=== PATIENT | female | born 1970 | race Caucasian/White ===

== ENCOUNTER 2022-10-06 11:12 | Day surgery (SDC) | payer BC ==
[2022-10-04 11:57] LABS: Absolute Lymphocytes (CBC) 1.3 K/uL (0.7-4.9); Hematocrit 39.4 % (36.0-45.0); MCV 87.7 fL (80-100); MPV 7.9 fL (7.6-11.3)
[2022-10-04 12:14] LABS: Specific Gravity 1.009 (1.005-1.030); Urine Bacteria <20 /HPF (<20); Urine Bilirubin NEGATIVE (Negative); Urine Blood 1+ (Negative); Urine Clarity Clear (Clear); Urine Color Colorless (Yellow); Urine Glucose NEGATIVE (Negative); Urine Mucus Slight /HPF (None Seen); Urine Protein NEGATIVE (Negative); Urine RBC <5 /HPF (None Seen); Urine Urobilinogen Normal (Normal); Urine pH 5.5 (5.0-7.0)
[2022-10-06] MEDS ORDERED: CEFAZOLIN SODIUM 2 GM/VIAL ONE (11:22)
[2022-10-06] MEDS ORDERED: Ringers Lactate 1,000 ML IV ONE ×2 (11:23→15:32)
[2022-10-06] MEDS: SCOPOLAMINE HYDROBROMIDE PATCH TD ONE ×3 (11:50→13:45)
[2022-10-06] MEDS ORDERED: propofoL 200 MG/20 ML VIAL IV ONE (13:18)
[2022-10-06] MEDS ORDERED: dexAMETHasone 10 MG/ML VIAL ONE (13:18)
[2022-10-06] MEDS ORDERED: LIDOCAINE 2% MPF 5 ML VIAL ONE (13:18)
[2022-10-06] MEDS ORDERED: MIDAZOLAM HCL 2 MG/2 ML INJ ONE (13:18)
[2022-10-06] MEDS ORDERED: ROCURONIUM 50 MG/5 ML VIAL IV ONE (13:18)
[2022-10-06] MEDS ORDERED: FENTANYL CITR 250 MCG/5 ML ONE (13:18)
[2022-10-06] MEDS ORDERED: ONDANSETRON 4 MG/2 ML VIAL ONE (13:23)
[2022-10-06] MEDS ORDERED: BUPIVACAINE 0.25% PF 30 ML VIAL ONE (13:34)
[2022-10-06] MEDS ORDERED: Levofloxacin500mg IV 500 MG/100 ML BAG IV ONE (13:59)
[2022-10-06] MEDS ORDERED: KETOROLAC 30 MG/ML INJ ONE (16:22)
[2022-10-06] MEDS ORDERED: MEPERIDINE HCL 25 MG/ML SYR IM PRN (16:52)
[2022-10-06] MEDS ORDERED: HYDROCODONE/APAP 5/325 MG TAB PO PRN (16:52)
[2022-10-06] MEDS ORDERED: PROMETHAZINE INJ 25 MG/ML AMP IV PRN (16:52)
[2022-10-06] MEDS ORDERED: IBUPROFEN 200 MG TAB PO PRN (16:52)
--- NOTE | 2022-10-06 16:57 | P.BOP ---
Preoperative diagnosis: AUB-O, postcoital bleeding Deep dyspareunia,Bicornuate uterus Postoperative diagnosis: same, pelvic adhesions and Endometriosis Primary procedure: TLH BS, Endometriosis excision, WENDY bladder and bowel>50%case Secondary procedure: cysto Outside Event Sales Specialist: Deborah Dodge Estimated blood loss: 100 Specimen: uterus tubes, endometriosis with specimen Findings: rt USL and post CDS adhesions from USL endo,lat broad lig,Rt ov.adhesions Anesthesia: General Complications: None Fluids & blood products: LR 1000, UO 200 Transferred to: Recovery Room Condition: Good
[2022-10-06 17:24] VITALS: O2SAT 100
[2022-10-06 18:29] VITALS: BP 113/69; TEMP 98.1
[2022-10-06] MEDS ORDERED: METOPROLOL XL 25 MG TAB PO SCH (21:00)
--- NOTE | 2022-10-06 22:36 | OP ---
Date of Procedure: 10/06/2022 Surgeon: Mady Vaca MD Primary Class Teacher: Deborah Tilley. Preoperative Diagnoses: Abnormal uterine bleeding-postcoital bleeding, deep dyspareunia, and bicornu ate uterus. Postoperative Diagnoses: Abnormal uterine bleeding-postcoital bleeding, deep dyspareunia, bicornuate uterus, pelvic adhesions, and endometriosis. Procedures Performed: Total laparoscopic hysterectomy, bilateral salpingectomy, endometriosis, excis ion of bladder and bowel adhesions which took 50% of the case at least 45 minutes and cystoscopy Anesthesia: General endotracheal. Estimated Blood Loss: 100. Urine Output: 200. Fluids: Ringer's Lactate in 1000. Complications: None. Drains: None. The patient's condition stable. Specimens: Uterus, tubes, endometriosis along with the specimen. Findings: Right uterosacral ligament had thick endometriosis coming from the right distal uterosacra l and the posterior cul-de-sac. There were significant adhesions of the right ovary to the posterior wall of the pelvis, lateral burrell, broad ligament, and uterosacral ligament. The tube was also adhe red to the ovaries on both sides. The left ovary was much freer than the right side. The course of the ureters on both sides appeared to be unremarkable. On cystoscopy, both ureteric orifices had str johnny jets of urine. There were significant varicosities inside the bladder very clearly visible throu gh the transitional epithelium. The vaginal cuff was closed with the help of 0 Vicryl sutures x5 and 2-0 PDS suture for a second laye r closure on the right half of the cuff, which is extremely thick. The bowel adhesions on the right upper quadrant and the right lateral abdominal wall were taken down. Cecal adhesions were present to this area. There were adhesions to the left lateral wall at the pe lvic brim covering the left tube and ovary at their origin. So, these also had to be taken down for me to complete the surgery. Then, there were posterior cul-de-sac adhesions that were obliterating t he cul-de-sac and these adhesions had to be taken down to restore normal anatomy before I finished th e hysterectomy. The cuff closed with the help of Vicryl sutures, 2 simple at both ends, 2 [id number] with full- thickness included and imbricated on the left and on the right center and right lateral aspect. So t he cuff closure first layer was done with interrupted [id number]-[id number] 0 Vicryl sutures x2 then the si ze of the angle stitch at the right lateral aspect and then 2-0 PDS for the second layer in an interr upted fashion. There was excellent support at the vaginal apex as the uterosacral ligaments were included into the v aginal cuff closure. After the patient presented from her primary care provider, Pinky Hester for irregular abnormal b leeding, postcoital bleeding, and dyspareunia, she had a transvaginal ultrasound and she had a hyster oscopy, which showed a bicornuate uterus. The sampling showed glandular crowding, no atypia or malig maik. Discussed all the benefits and risks and alternative of treatment of her problem. She was no t a good candidate for either an IUD or an ablation due to her uterine anomaly. She had an IVP that showed normal urinary tract anatomy. So she was offered a hysterectomy with bilateral salpingectomy, possible endometriosis excision and l ysis of adhesions seen and cystoscopy. The alternative was to treat with medication and the patient decided to proceed with surgical treatment. Procedure In Detail: After informed consent was verified, she was taken back to OR and placed in sup ine fashion on the operating table. 500 mg of Levaquin was given. SCDs were placed. General anesth esia was given. She was placed in dorsal lithotomy position using Pb stirrups. Positioning was c hecked. Arms were tucked by the side. Time-out was done and procedure started. Abdomen was prepped with ChloraPrep and vulva, vagina, and perineum with Betadine and these were draped in a sterile fas hion. Speculum was placed to expose the cervix and uterus was manipulated with the help of Allis cla mps on the anterior lip of the cervix. Then, after dilating the uterine canal on the left lateral as pect anteriorly, the 20-[place] then large VCare was introduced and fixed in place. Sandoval was placed to drain the bladder and attached for retrograde filling through drainage and through cysto tubing to LR bag emptied 300. Once all the bottom was draped, started the laparoscopic procedure by making an incision infraumbilic al in a curvilinear fashion with a 15 blade. Then dissection carried down to the fascia, incised and tagged with 0 Vicryl sutures and peritoneum entered sharply. Deny introduced. Site of entry was checked and was unremarkable. The liver unremarkable. The gallbladder was not visualized. The appe ndix was visualized and was unremarkable. There were adhesions to the anterior abdominal wall. Thes e adhesions were taken down after placing a 5 left lateral and 10 and 12 suprapubic ports. With deidre p dissection and with cautery, these adhesions were taken down so that a 5 right lateral port could b e placed, which was placed without any problems under direct vision. She was placed in Trendelenburg position. Bowel was tucked to the top. There were bowel adhesions o n the left lateral wall, the entire pelvis as well as the anterior cul-de-sac obliterating the cul-de -sac. There were also adhesions to the uterosacral ligaments from the ovaries and tubes on both side s, but the right one was more adhesive than the left side. I proceeded to separate the ovary from the posterior wall of the pelvis sharply with dissection with scissors. Then the tube was dissected from the posterior pelvic wall with sharp dissection with the LigaSure. Then the lateral wall was opened up taking down the adhesions systematically to expose the lateral wall structures. This dissection carried down to the uterosacrals. Similar dissection bernardo ied from the left top of the pelvic brim to the left uterosacral and the cul-de-sac. All the adhesio ns were taken down sharply with scissors. Once normal anatomy was restored here, then the procedure was started taking down the round ligament on the left side, coming cephalad to open the mesosalpinx and the broad ligament lateral to the ovari an blood supply. The utero-ovarian ligament was taken down and broad ligament was taken down. Poste riorly the peritoneum was opened up to the uterosacral identifying the vessels and the ureter and the crossing of the ureter. The vessels were isolated after the broad ligaments were then taken down. Then, anterior broad ligam ent was raised to raise the bladder flap and bladder was dissected sharply down at least 2 to 2.5 cm to the vaginal apex where the cuff would be. I went on to isolate the vessels, cauterize them without dividing them. Attention directed to the opposite side where the round ligament was taken down. The broad ligament opened up superior to it, taking the mesosalpinx and the tube out. Utero-ovarian ligament was taken down then the rest of the round ligament was completed. Posteriorly peritoneum was dissected towards the right uterosacral ligament here. There was significant scar tissue, which was again shaved off. This could be endometriosis and shaved off and kept as specimen. As I was creating a bladder flap on the left side, this was first connected in a superficial fashion then deeply. The underlying stru ctures were adherent significantly to the broad ligament and to the vessels on the right lateral aspe ct of the uterus. These were systematically taken down. There was significant bleeding for 1 vessel right superior to the uterine artery in the broad ligament. This was clipped medially and laterally it had to be grasped so that there was no further more blood loss. Then went ahead and consulted Ur ology for a safe map to ligate the uterine artery if it was still attached to the ureter. The advice was to place the clips; however, the only available automatic caps were 5 mm and so uterine artery w as dissected out laterally and a clip was placed on the anterior and superior aspect of the plane. T his is most likely a broad ligament vessel. This was the one that bled most. Once this was clipped, hemostasis was secured. I was able to dissect down to the uterine artery. Here, it was cleaned out and cauterized and cut with the LigaSure. Cardinal ligaments were taken down with the help of bipol ar and monopolar. The vessels on the opposite side were also taken down with the help of the LigaSur e as well as the cardinal ligaments. Circumferential colpotomy was performed with a monopolar hook b lade. After the specimen was pulled out through the vagina, ovaries were visualized and were unremar kable and had great blood supply. The vaginal cuff was irrigated after the specimen was removed from the vagina. Cuff was closed with 2 simple 0 Vicryl sutures at both angles including full thickness of the anterior and posterior vagin al burrell. Two cglkdpq-wv-syfae were placed on the left lateral aspect and on the right lateral aspec t, 2-0 Vicryl sutures were placed then followed by a 2-0 PDS to reinforce this and closed the vaginal cuff in 2 layers. Thorough irrigation and suction were done. There was excellent hemostasis. Post erior cul-de-sac was also examined. No other remnants of endometriosis were seen. The gas was desuf flated. Trocars were removed. Fascia at the umbilicus closed with the help of 0 Vicryl tag sutures, tied to each other and simple 0 Vicryl stitch at the suprapubic fascial site. All skin incisions we re closed with the help of 5-0 Monocryl. Sandoval was removed. Vaginal occluder was removed. Cystoscopy was performed with a 17-[place] sheath, 30-degree lens. Normal saline with excellent jets of urine from both ureteric orifices. No evidence of any trauma to the bladder. There were small varicosities that very prominent within her bladder. No evidence of any other abnormal tumors. The bladder was drained partially and fluid left for voi ding trials. Instrument, needle, and sponge counts were correct in the case. The patient tolerated procedure well. She was recovered from anesthesia and taken to PACU in stable condition. ESTEBAN/PHUONG Voice ID: [id number] Report ID: [id number]
== END 2022-10-06 18:40 | disposition home or self-care (01) ==
LOC: OR 11:12
PROVIDERS: ATTEND Obstetrics & Gynecology
PROC: 0UT74ZZ Resection of Bilateral Fallopian Tubes, Percutaneous Endoscopic Approach (ICD-10-PCS; 2022-10-06)
PROC: 0TBB4ZZ Excision of Bladder, Percutaneous Endoscopic Approach (ICD-10-PCS; 2022-10-06)
PROC: 0UBF4ZZ Excision of Cul-de-sac, Percutaneous Endoscopic Approach (ICD-10-PCS; 2022-10-06)
PROC: 0DNH4ZZ Release Cecum, Percutaneous Endoscopic Approach (ICD-10-PCS; 2022-10-06)
PROC: 0DNF4ZZ Release Right Large Intestine, Percutaneous Endoscopic Approach (ICD-10-PCS; 2022-10-06)
PROC: 0DNW4ZZ Release Peritoneum, Percutaneous Endoscopic Approach (ICD-10-PCS; 2022-10-06)
PROC: 0UT94ZZ Resection of Uterus, Percutaneous Endoscopic Approach (ICD-10-PCS; principal; 2022-10-06 13:00)
DX: N93.9 Abnormal uterine and vaginal bleeding, unspecified (principal); N93.0 Postcoital and contact bleeding; N94.12 Deep dyspareunia; Q51.3 Bicornate uterus; N80.A0 Endometriosis of bladder, unspecified depth; N80.319 Endometriosis of the anterior cul-de-sac, unspecified depth
CPT/HCPCS: 58571; 53899; 58662; 58660; 44180; 85025; 81001; 36415 ×2; 86900; 86850; 84703; 86901; 88307; J2704; J2001; J2250; J3010; J1100; J2405; J7120 ×2